=== PATIENT | male | born 1940 | race Caucasian/White ===

== ENCOUNTER 2016-07-21 07:22 | Day surgery (SDC) | payer MEDICARE, OTHER ==
[~2016-07-21] VITALS: Ht 182.9 cm; Wt 85.5 kg
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
[~2016-07-21 07:22] MED LIST: CeFAZolin Inj 2 GM in IV Premix 1 EACH IV SCH; Lactated Ringer's 1,000 ML IV ONE; eye gtts
[2016-07-21] MEDS ORDERED: Ondansetron 2 mg/mL 2 mL Inj ONE (07:23)
[2016-07-21] MEDS ORDERED: Propofol 10,000 mCg/mL 20 mL Inj ONE (07:23)
[2016-07-21] MEDS ORDERED: fentaNYL-PF 50 mCg/mL 2 mL Inj ONE (07:23)
[2016-07-21] MEDS ORDERED: EPHEDrine/NS 5 mg/mL 5 mL Syringe ONE (07:23)
[2016-07-21 08:09] VITALS: BP 135/69; PULSE 42; RESP 18; O2SAT 96
[2016-07-21] MEDS ORDERED: Lactated Ringer's 1,000 ML IV SCH (09:27)
[2016-07-21] MEDS ORDERED: Lactated Ringer's 500 ML IV PRN (09:27)
[2016-07-21] MEDS ORDERED: Phenylephrine 10,000 mCg/mL Inj IVPUSH PRN (09:30)
[2016-07-21] MEDS ORDERED: EPHEDrine Sulfate 50 mg/mL Inj IVPUSH PRN (09:30)
[2016-07-21] MEDS ORDERED: Dexamethasone 4 mg/mL Inj IVPUSH PRN (09:30)
[2016-07-21] MEDS ORDERED: hydrALAZINE 20 mg/mL Inj IVPUSH PRN (09:30)
[2016-07-21] MEDS ORDERED: Atropine 0.4 mg/mL Inj IVPUSH PRN (09:30)
[2016-07-21] MEDS ORDERED: Ondansetron 2 mg/mL 2 mL Inj IVPUSH PRN (09:30)
[2016-07-21] MEDS ORDERED: Labetalol 5 mg/mL 4 mL Inj IV PRN (09:30)
[2016-07-21] MEDS ORDERED: HYDROmorphone 1 mg/mL Inj IVPUSH PRN (09:30)
[2016-07-21] MEDS ORDERED: fentaNYL-PF 50 mCg/mL 2 mL Inj IVPUSH PRN (09:30)
[2016-07-21] MEDS ORDERED: Lidocaine PF 1% 30 mL Inj NERVEBLOCK ONE (09:36)
[2016-07-21 10:10] VITALS: BP 130/71; PULSE 46; RESP 12; O2SAT 96
[2016-07-21] MEDS ORDERED: HYDROcodone-APAP 5-325 mg Tablet PO PRN (10:20)
[2016-07-21 10:29] VITALS: BP 111/64; PULSE 40; RESP 12; O2SAT 95
[2016-07-21 10:43] VITALS: BP 113/67; PULSE 43; RESP 12; O2SAT 97
--- NOTE | 2016-07-21 10:52 | PCM.ANEP1 ---
Post Anesthesia Phase 1 PACU Phase 1 Assessment Vital Signs Vital Signs Date Time Temp Pulse Resp B/P Pulse Ox O2 Delivery O2 Flow Rate FiO2 07/21/16 08:09 36.2 42 18 135/69 96 Room Air Anesthetic Administered: GA Level of Alertness: Awake, talking RIDER's with Equal Strength: Yes Pain: No Nausea or Vomiting: No Cardiovascular Function and Hy: No Oxygen Delivery: Simple Mask Lungs: Normal Air Movement Complications: No Follow up Care: No Cory Day MD July 21, 2016 10:52
[2016-07-21 11:02] VITALS: BP 118/75; PULSE 40; RESP 13; O2SAT 95
[2016-07-21 11:33] VITALS: BP 137/62; PULSE 43; RESP 14; O2SAT 95
--- NOTE | 2016-07-21 20:28 | OP ---
[address] [address] OPERATIVE REPORT PATIENT: ERICA MCKEON : 1940 MR#: [id number] ADMIT: 07/21/2016 JOB ID: [id number] DATE OF SURGERY: 07/21/2016 PREOPERATIVE DIAGNOSIS(ES): Phimosis. POSTOPERATIVE DIAGNOSIS(ES): Phimosis. PROCEDURE PERFORMED: Circumcision. SURGEON: Blaire King MD. SLIPPER MAKER: None. FINDINGS: Phimosis. ANESTHESIA: General. ESTIMATED BLOOD LOSS: Less than 5 mL. DRAINS: None. SPECIMENS: Foreskin. COMPLICATIONS: None. CONDITION: Stable. INDICATION FOR PROCEDURE: The patient is a 76-year-old man who has previously undergone a dorsal slit. He was dissatisfied with the cosmesis of this and wished to undergo a circumcision. DESCRIPTION OF THE PROCEDURE: After informed consent was obtained, the patient was taken to the operating room. A time-out was performed identifying correct patient, surgical site, and procedure. General anesthesia was smoothly induced. He was given intravenous antibiotics just prior to start of the procedure. He was placed in supine position and all pressure points were identified and appropriately padded. His genitals were then prepped and draped in the usual sterile fashion. The foreskin was retracted. One cm proximal to the coronal ridge of the glans penis, a marking pen was used to delineate the incision site. The incision was carried through with a 15 blade. Bovie electrocautery was used for hemostasis down to the subcutaneous layers. Next, the foreskin was then gently replaced over the glans penis. Another circumferential incision was marked and carried through with a 15 blade. This incision was approximately 1 cm distal to the impression of the coronal ridge. Bovie electrocautery was used to carry this through the subcutaneous tissues. Foreskin was then removed in circumferential fashion with Bovie electrocautery. Hemostasis was achieved. At the 12 and 6 o'clock positions, 3-0 chromic was used in interrupted fashion. Next, at the 3 and 9 o'clock positions, interrupted sutures were placed there, and then in the intervening quadrants, interrupted 3-0 chromics were used to bring the skin together. Bacitracin was placed around the wound. Vaseline gauze was placed around it. Carmelo gauze was placed around the penis in a non-pressurized fashion. Coban dressing was placed around it as well to keep the bandage in place. The patient and his were already counseled on how to perform wound care. The patient was reversed from general anesthesia and taken to the PACU in good and stable condition. OSIEL
--- NOTE | 2016-07-24 18:12 | PATH ---
SURGICAL PATHOLOGY Attending Physician:Blaire King, CASE STATUS: Signed Out PATIENT NAME: ERICA MCKEON PID: [id number] : 1940 DATE COLLECTED:07/21/2016 17:28 SPECIMEN: Foreskin, NS CLINICAL HISTORY: PHIMOSIS 1). FORESKIN FINAL DIAGNOSIS: Foreskin: Portion of squamous mucosa with a small foreign body giant cell reaction, underlying fibrosis, and mild chronic inflammation. Negative for dysplasia and malignancy. ICD10: N47.1 GROSS DESCRIPTION: Received in formalin, labeled "foreskin", specimen consists of a wrinkled, irregular piece of skin measuring 6.5 x 3.5 x 0.6 cm in maximum thickness. Epidermal surface is carlos to pale belcher, partially glistening. No masses or lesions are grossly identified. Resection margin is inked. Specimen is serially sectioned and renewals representative sections are submitted in three cassettes: [id number]) ICD-9 CODES: CPT CODES: 1: 05010, 52739 Electronically Signed Out Blaire Santos MD [facility] [address], [place] [address] Technical component performed at [facility], [facility] [address], [place], [address]
== END 2016-07-21 23:59 | disposition home or self-care (01) ==
LOC: SAS 07:22
PROVIDERS: ATTEND Urology
DX: N47.1 Phimosis (principal)
CPT/HCPCS: 54161; J0690; J2405; J3010; J7120